=== PATIENT | male | born 1940 | race Native Hawaiian/Other Pacific Islander ===

== ENCOUNTER 2017-09-20 09:26 | Outpatient (CLI) | payer OTHER ==
[2017-09-20 09:53] LABS: PLATELET COUNT 166 K/uL (142-355)
[2017-09-20 10:17] LABS: POTASSIUM 4.2 mmol/L (3.6-5.2)
== END 2017-09-20 19:44 | disposition home or self-care (01) ==
LOC: LABW 09:26
PROVIDERS: Internal Medicine Clinical Cardiac Electrophysiology
DX: I42.9 Cardiomyopathy, unspecified (principal); E78.5 Hyperlipidemia, unspecified; I44.2 Atrioventricular block, complete
CPT/HCPCS: 36415; 80053; 80061; 82248; 85027

== ENCOUNTER 2018-02-20 10:27 | Outpatient (CLI) | payer OTHER ==
[2018-02-20 10:45] LABS: PLATELET COUNT 205 K/uL (142-355)
[2018-02-20 10:55] LABS: POTASSIUM 4.1 mmol/L (3.6-5.2)
== END 2018-02-20 22:32 | disposition home or self-care (01) ==
LOC: LABW 10:27
PROVIDERS: Internal Medicine Clinical Cardiac Electrophysiology
DX: E78.5 Hyperlipidemia, unspecified (principal); I44.2 Atrioventricular block, complete; Z95.0 Presence of cardiac pacemaker
CPT/HCPCS: 36415; 80053; 80061; 82248; 85027

== ENCOUNTER 2021-03-27 11:55 | Emergency (ER) | payer OTHER ==
[~2021-03-27] VITALS: Ht 177.8 cm; Wt 72.6 kg
[2021-03-27 12:24] LABS: PLATELET COUNT 192 K/uL (142-355)
[2021-03-27 12:30] LABS: PARTIAL THROMBOPLASTIN TIME 19.9 SECONDS (24.5-33.6)
[2021-03-27 12:33] LABS: POTASSIUM 4.6 mmol/L (3.6-5.2)
[2021-03-27 15:50] VITALS: BP 101/49; TEMP 98.9
== END 2021-03-27 15:50 | disposition short-term general hospital (02) ==
LOC: ED 11:55
PROVIDERS: Emergency Medicine
PROC: 0T9B70Z Drainage of Bladder with Drainage Device, Via Natural or Artificial Opening (ICD-10-PCS; principal; 2021-03-27)
PROC: 30233N1 Transfusion of Nonautologous Red Blood Cells into Peripheral Vein, Percutaneous Approach (ICD-10-PCS; 2021-03-27)
DX: N17.8 Other acute kidney failure (principal); D64.89 Other specified anemias; J18.9 Pneumonia, unspecified organism; Z11.52 Encounter for screening for COVID-19; Z98.890 Other specified postprocedural states
CPT/HCPCS: 36430; 36600; 51702; 80053; 81000; 82550; 82805; 83605; 83880; 84484; 85027; 85379; 85610; 85730; 86850; 86900; 86901; 86922; 87040; 87635; 93005; 96365; 99284; J0696; P9016; U0003